=== PATIENT | male | born 1990 | race Caucasian/White ===

== ENCOUNTER 2021-02-18 17:34 | Emergency (ER) | payer OTHER ==
[~2021-02-18] VITALS: Ht 177.8 cm; Wt 78.7 kg
[2021-02-18 17:55] VITALS: BP 155/79
[2021-02-18] MEDS ORDERED: LIDOCAINE/EPI/TETRACAINE TOPICAL GEL 3 ML. TP ONE (18:45)
--- NOTE | 2021-02-18 19:34 | PHYS DOC ---
Past History Past Medical History: No Pertinent History (NAV ENNIS APRN) Past Surgical History: No Surgical History (NAV ENNIS APRN) Alcohol Use: None (NAV ENNIS APRN) Adult General Chief Complaint Chief Complaint: LACERATION/AVULSION HPI HPI Patient is a 30-year-old male who presents emergency department with complaints of a laceration to his right brow. Patient states he was horse playing with his when they started to fall, and lacerated his brow on a child's toy. Patient denies any loss of consciousness or hitting his head. Patient states his last tetanus immunization was less than 5 years ago. Patient denies vision changes. Patient denies any other physical complaints or physical concerns. (NAV ENNIS APRN) Review of Systems Review of Systems 14 body systems of review of systems have been reviewed. See HPI for pertinent positives and negative responses, otherwise all other systems are negative, nonpertinent or noncontributory. (NAV ENNIS APRN) Current Medications Current Medications Current Medications Medications (Trade) Dose Ordered Sig/Kylie Start Time Stop Time Status Last Admin Dose Admin Lidocaine/ Epinephrine (Let (Ttqy-Nhfdelm-Fkxme) Gel) 3 ml 1X ONCE 02/18/21 18:45 02/18/21 18:46 DC 02/18/21 18:49 3 ML (NAV ENNIS APRN) Allergies Allergies Allergies Coded Allergies Type Severity Reaction Last Updated Verified No Known Drug Allergies 02/18/21 No (NAV ENNIS APRN) Physical Exam Physical Exam Constitutional: Well developed, well nourished, no acute distress, non-toxic appearance. 30-year-old male in no apparent distress. HENT: Normocephalic, atraumatic, bilateral external ears normal, oropharynx moist, no oral exudates, nose normal. Laceration through right brow 1 cm in length partial-thickness, no adipose tissue appreciated, no bruising appreciated, bleeding controlled with bandage. Eyes: PERRLA, EOMI, conjunctiva normal, no discharge. Pupils 4 mm. Cardiovascular: No cyanosis appreciated, distal cap refill less than 2 seconds. Lungs & Thorax: Patient in no obvious respiratory distress. Skin: Warm, dry, no erythema, no rash. See HEENT note for skin laceration note. Extremities: Patient moving all extremities normally, patient ambulating with normal steady gait. Neurologic: Alert and oriented X 3, normal motor function, normal sensory function, no focal deficits noted. Psychologic: Affect normal, judgement normal, mood normal. (NAV ENNIS APRN) Current Patient Data Vital Signs Vital Signs Date Time Temp Pulse Resp B/P (MAP) Pulse Ox O2 Delivery O2 Flow Rate FiO2 02/18/21 17:55 98.2 77 16 155/79 (104) 99 Room Air (NAV ENNIS APRN) EKG EKG [] (NAV ENNIS APRN) Radiology/Procedures Radiology/Procedures [] (NAV ENNIS APRN) Heart Score C/O Chest Pain: No Risk Factors: Risk Factors: DM, Current or recent (<one month) smoker, HTN, HLP, family history of CAD, obesity. Risk Scores: Risk Factors: DM, Current or recent (<one month) smoker, HTN, HLP, family history of CAD, obesity. (NAV ENNIS APRN) Course & Med Decision Making Course & Med Decision Making Pertinent Labs and Imaging studies reviewed. (See chart for details) 30-year-old male, vital signs reviewed, presents emergency department concerning right brow laceration. Physical examination was consistent with patient's complaint. See laceration repair note. Patient gave verbal understanding of discharge home instructions, Dermabond glue laceration repair care, return to ER precautions or concerns, follow-up with primary care as needed, patient had no further questions or concerns, was thankful, was discharged home without incident. (NAV ENNIS APRN) Course & Med Decision Making Did not see or evaluate patient. Agree with CORDUROY BRUSHER OPERATOR's work-up and disposition per note. (ALVIN JOINER MD) Dragon Disclaimer Dragon Disclaimer This electronic medical record was generated, in whole or in part, using a voice recognition dictation system. (NVA ENNIS APRN) Departure Departure: Impression: Primary Impression: Laceration of eyebrow, right Disposition: HOME / SELF CARE / HOMELESS Condition: GOOD Referrals: PCP,NO (PCP) Patient Instructions: Tissue Adhesive Wound Care Additional Instructions: You are seen in the emergency department today for a minor laceration within your right brow. We discussed options for repair, we could no joint decision that Dermabond glue skin repair would be the best option. I have attached information for wound care pertaining to glued/skin glued wounds. Please do not place ointments over area. Glue should start self removing within about 5 days, you may assist afterwards. There are no signs and symptoms of infectious process. Please follow-up with your primary care doctor at the [facility] for ongoing care. Return to the emergency department for worsening symptoms or other concerns. EMERGENCY DEPARTMENT GENERAL DISCHARGE INSTRUCTIONS Thank you for coming to [facility] (ED) today and trusting us with you care. We trust that you had a positivie experience in our Emergency Department. If you wish to speak to the department management, you may call the director at [phone]. YOUR FOLLOW UP INSTRUCTIONS ARE FOLLOWS: 1. Do you have a private Doctor? If you do not have a private doctor, please ask for a resource list of physicians or clinics that may be able to assist you with follow up care. 2. The Emergency Physician has interpreted your x-rays. The X-Ray specialist will also review them. If there is a change in the findings, you will be notified in 48 hours when at all possible. 3. A lab test or culture has been done, your results will be reviewed and you will be notified if you need a change in treatment. ADDITIONAL INSTRUCTIONS AND INFORMATION: 1. Your care today has been supervised by a physician who is specially trained in emergency care. Many problems require more than one evaluation for a complete diagnosis and treatment. We recommend that you schedule your follow up appointment as recommended to ensure complete treatment of you illness or injury. If you are unable to obtain follow up care and continue to have a problem, or if your condition worsens, we recommend that you return to the ED. 2. We are not able to safely determine your condition over the phone nor are we able to give sound medical advice over the phone. For these safety reasons, if you call for medical advice we will ask you to come to the ED for further evaluation. 3. If you have any questions regarding these discharge instructions please call the ED at [phone]. SAFETY INFORMATION: In the interest of safety, wellness, and injury prevention; we encourage you to wear your sealbelt, if you smoke; quite smoking, and we encourage family to use a protective helmet for bicycling and other sporting events that present an increased risk for head injury. IF YOUR SYMPTOMS WORSEN OR NEW SYMPTOMS DEVELOP, OR YOU HAVE CONCERNS ABOUT YOUR CONDITION; OR IF YOUR CONDITION WORSENS WHILE YOU ARE WAITING FOR YOUR FOLLOW UP APPOINTMENT; EITHER CONTACT YOUR PRIMARY CARE DOCTOR, THE PHYSICIAN WHOSE NAME AND NUMBER YOU WERE GIVEN, OR RETURN TO THE ED IMMEDIATELY. Laceration Repair Lac Repair Indication: [] Right brow laceration Procedure: The patient was placed in the appropriate position and anesthesia around the laceration was achieved with topical LET. The wound was cleansed with normal saline and chlorhexidine scrub. The laceration was repaired with Dermabond skin glue. No dressing required. The patient's tetanus immunization was up-to-date prior to arrival to the ER today. Total repaired wound length: 1 cm. Other Items: No other items The patient tolerated the procedure well. Complications: There were no complications. (NAV ENNIS APRN) Problem Qualifiers Primary Impression: Laceration of eyebrow, right Encounter type: initial encounter Qualified Codes: S01.111A - Laceration without foreign body of right eyelid and periocular area, initial encounter NAV ENNIS APRN February 18, 2021 19:34 ALVIN JOINER MD February 19, 2021 02:16
== END 2021-02-18 19:37 | disposition home or self-care (01) ==
LOC: ER 17:34
DX: S01.111A Laceration without foreign body of right eyelid and periocular area, initial encounter (principal); W18.00XA Striking against unspecified object with subsequent fall, initial encounter; Y93.89 Activity, other specified; Y92.89 Other specified places as the place of occurrence of the external cause; Y99.8 Other external cause status
CPT/HCPCS: 12011; 99282-25

== ENCOUNTER 2021-04-10 13:38 | Emergency (ER) | payer OTHER ==
[~2021-04-10] VITALS: Ht 177.8 cm; Wt 76.0 kg
[2021-04-10 13:59] VITALS: BP 136/79
--- NOTE | 2021-04-10 15:00 | PHYS DOC ---
Past History Past Medical History: No Pertinent History (NAV ENNIS APRN) Past Surgical History: No Surgical History (NAV ENNIS APRN) Alcohol Use: None (NAV ENNIS APRN) Adult General Chief Complaint Chief Complaint: CONGESTION HPI HPI Patient is a 30-year-old male who presents to the emergency department complaining of a 4-day history of cough, runny nose, dry cough and sinus pressure. Patient denies fever or chills. Patient states he has been treating at home with Sudafed and Advil with some relief. Patient states his symptoms started after he was grilling 4 days ago and the fire flamed up and singed the hairs in his nose, patient denies any leon or blisters to his face. Patient denies allergies to medications. Patient states that his son and daughter are having similar symptoms, states that he has a and daughter at home that are not experiencing any similar symptoms. Patient reports he has had his COVID-19 vaccines completed this year. Patient denies any other physical complaints or physical concerns. (NAV ENNIS APRN) Review of Systems Review of Systems 14 body systems of review of systems have been reviewed. See HPI for pertinent positives and negative responses, otherwise all other systems are negative, non pertinent or noncontributory. (NAV ENNIS APRN) Allergies Allergies Allergies Coded Allergies Type Severity Reaction Last Updated Verified No Known Drug Allergies 02/18/21 No (NAV ENNIS APRN) Physical Exam Physical Exam Constitutional: Well developed, well nourished, no acute distress, non-toxic appearance. 30-year-old male in no apparent distress. HENT: Normocephalic, atraumatic., Oropharynx moist, pink, no swelling or edema appreciated, no infectious process appreciated, no postnasal drip appreciated, no drooling, no trismus, bilateral TMs within normal limits, bilateral external auditory canals within normal limits, no drainage appreciated. Bilateral nasal turbinates nonerythematous, no drainage appreciated. No signs or symptoms of thermal leon to nasal turbinates. Eyes: Conjunctiva normal, no discharge. Neck: Normal range of motion, no stridor. Cardiovascular: No cyanosis appreciated, distal cap refill less than 2 seconds. Lungs & Thorax: Patient is in no respiratory distress, no audible adventitious lung sounds appreciated. Abdomen: Nontender, no abnormalities noted. Skin: Warm, dry, no erythema, no rash. Back: No tenderness, no deformities. Extremities: No tenderness, no cyanosis, no clubbing, ROM intact, no edema. Neurologic: Alert and oriented X 3, normal motor function, normal sensory function, no focal deficits noted. Psychologic: Affect normal, judgement normal, mood normal. (NAV ENNIS APRN) Current Patient Data Vital Signs Vital Signs Date Time Temp Pulse Resp B/P (MAP) Pulse Ox O2 Delivery O2 Flow Rate FiO2 04/10/21 13:59 98.0 67 16 136/79 98 Room Air (NAV ENNIS APRN) EKG EKG [] (NAV ENNIS APRN) Radiology/Procedures Radiology/Procedures [] (NAV ENNIS APRN) Heart Score C/O Chest Pain: No Risk Factors: Risk Factors: DM, Current or recent (<one month) smoker, HTN, HLP, family history of CAD, obesity. Risk Scores: Risk Factors: DM, Current or recent (<one month) smoker, HTN, HLP, family history of CAD, obesity. (NAV ENNIS APRN) Course & Med Decision Making Course & Med Decision Making Pertinent Labs and Imaging studies reviewed. (See chart for details) 30-year-old male, vital signs reviewed, presents emergency department concerning nasal congestion with dry cough for the past 4 days. Physical examination consistent with allergic rhinitis, discussed findings with patient, recommend lthf-xiz-aztdzzm Benadryl with Zyrtec or Claritin, also recommended nflo-owr-jzullum Flonase for symptoms. Patient gave verbal understanding of exam findings and diagnosis of allergic rhinitis, discharge home instructions, follow-up with PCP soon, clbi-eio-wrxujht medication use, return to ER precautions or concerns, patient had no further questions or concerns and was discharged home without incident. (NAV ENNIS APRN) Dragon Disclaimer Dragon Disclaimer This electronic medical record was generated, in whole or in part, using a voice recognition dictation system. (NAV ENNIS APRN) Attending Co-Sign The patient was seen and interviewed as well as examined at the bedside. The chart was reviewed. The case was discussed. Agree with the plan of care. (JACKSON MAY DO) Departure Departure: Impression: Primary Impression: Allergic rhinitis Disposition: HOME / SELF CARE / HOMELESS Condition: GOOD Referrals: PCP,NO (PCP) Patient Instructions: Allergic Rhinitis Additional Instructions: You were seen today in the emergency department for cough runny nose and sinus pressure. Your physical examination revealed an allergic rhinitis, this is most likely related to the result of you singeing your nose hairs with your grill flareup that you reported. We discussed using ziwx-vfr-iestwwh Zyrtec or Claritin along with Benadryl for symptoms, we also discussed the use of ksys-uhp-xxcevjf Flonase. Please use as directed. Please follow-up with your primary care doctor for ongoing symptoms. As we discussed some allergic rhinitis symptoms can last up to 5 weeks. Please take this time to use the rcmg-cny-mjmwaah allergy medicines for relief of symptoms. Increase fluids to help speed the healing process. Please return to the emergency department for worsening symptoms or other concerns. It was a pleasure taking care of you today in the emergency department and I thank you for allowing me to participate in your emergency healthcare needs. EMERGENCY DEPARTMENT GENERAL DISCHARGE INSTRUCTIONS Thank you for coming to [facility] ([facility]) today and trusting us with you care. We trust that you had a positivie experience in our Emergency Department. If you wish to speak to the department management, you may call the director at [phone]. YOUR FOLLOW UP INSTRUCTIONS ARE FOLLOWS: 1. Do you have a private Doctor? If you do not have a private doctor, please ask for a resource list of physicians or clinics that may be able to assist you with foll ow up care. 2. The Emergency Physician has interpreted your x-rays. The X-Ray specialist will also review them. If there is a change in the findings, you will be notified in 48 hours when at all possible. 3. A lab test or culture has been done, your results will be reviewed and you will be notified if you need a change in treatment. ADDITIONAL INSTRUCTIONS AND INFORMATION: 1. Your care today has been supervised by a physician who is specially trained in emergency care. Many problems require more than one evaluation for a complete diagnosis and treatment. We recommend that you schedule your follow up appointment as re commended to ensure complete treatment of you illness or injury. If you are unable to obtain follow up care and continue to have a problem, or if your condition worsens, we recommend that you return to the ED. 2. We are not able to safely determine your condition over the phone nor are we able to give sound medical advice over the phone. For these safety reasons, if you call for medical advice we will ask you to come to the ED for further evaluation. 3. If you have any questions regarding these discharge instructions please call the ED at [phone]. SAFETY INFORMATION: In the interest of safety, wellness, and injury prevention; we encourage you to wear your sealbelt, if you smoke; quite smoking, and we encourage family to use a protective helmet for bicycling and other sporting events that present an increased risk for head injury. IF YOUR SYMPTOMS WORSEN OR NEW SYMPTOMS DEVELOP, OR YOU HAVE CONCERNS ABOUT YOUR CONDITION; OR IF YOUR CONDITION WORSENS WHILE YOU ARE WAITING FOR YOUR FOLLOW UP APPOINTMENT; EITHER CONTACT YOUR PRIMARY CARE DOCTOR, THE PHYSICIAN WHOSE NAME AND NUMBER YOU WERE GIVEN, OR RETURN TO THE ED IMMEDIATELY. Problem Qualifiers Primary Impression: Allergic rhinitis Allergic rhinitis trigger: unspecified Allergic rhinitis seasonality: unspecified Qualified Codes: J30.9 - Allergic rhinitis, unspecified NAV ENNIS APRN Apr 10, 2021 15:00 JACKSON MAY DO Apr 11, 2021 07:14
== END 2021-04-10 15:25 | disposition home or self-care (01) ==
LOC: ER 13:38
DX: J30.9 Allergic rhinitis, unspecified (principal)
CPT/HCPCS: 99282